=== PATIENT | male | born 1990 | race Two or more races ===

== ENCOUNTER 2019-12-18 11:44 | Emergency (ER) | payer MEDICAID ==
[~2019-12-18] VITALS: Ht 170.2 cm; Wt 90.7 kg
[~2019-12-18 11:44] MED LIST: AMOXICILLIN500 MG ORAL; IBUPROFEN600 MG ORAL
[2019-12-18 12:05] VITALS: BP 148/96
[2019-12-18] MEDS ORDERED: Lidocaine 1% Plain 30 ml INJ ONE (12:45)
[2019-12-18] MEDS ORDERED: CEPHALEXIN500 M1 ORAL (13:01)
[2019-12-18] MEDS ORDERED: BACTRIM DS TAB1 EAC1 ORAL (13:01)
--- NOTE | 2019-12-18 13:01 | Emergency Room Report ---
History of Present Illness General Chief Complaint: Skin Rash/Abscess Source: Patient Present Illness HPI 29-year-old male presents with pain to the left middle finger x3 days he endorses pus coming out of it, he states he poked it against a nail, no fevers no chills, patient states he is able to range his entire left middle finger he states there is only pain at the tip pain is described as sharp aggravated by touching it alleviated by leaving alone severity is moderate Allergies: Coded Allergies: NO KNOWN ALLERGIES (Unverified Allergy, Unknown, 04/14/15) COVID-19 Screening Contact w/high risk pt: No Experienced COVID-19 symptoms?: No COVID-19 Testing performed [employer]: No Patient History Past Medical History: see triage record Reviewed Nursing Documentation: PMH: Agreed; PSxH: Agreed Nursing Documentation-PMH Past Medical History: No Stated History Review of Systems All Other Systems: negative except mentioned in HPI Physical Exam Vital Signs Date Time Temp Pulse Resp B/P (MAP) Pulse Ox O2 Delivery O2 Flow Rate FiO2 12/18/19 11:52 99.0 96 15 150/94 (112) 99 Room Air General Appearance: well appearing, no apparent distress Head: normocephalic, atraumatic ENT: hearing grossly normal, normal voice Neck: full range of motion, supple Respiratory: no respiratory distress, speaking full sentences Musculoskeletal: other - Left upper extremity: 2+ radial pulse, cap refill less than 3 seconds, sensation grossly intact, left middle finger shows swelling erythema and drainage, at the tip, Neurologic: alert, normal gait Psychiatric: mood/affect normal Skin: no rash Procedures Incision and Drainage Incision and Drainage : Consent: Verbal Site: Left middle finger Blade Size: 11 I & D Procedure: betadine prep Wound Location: upper extremity - Left middle finger Wound's Depth, Shape: superficial Wound Length (cm): 1 Wound Explored: clean Irrigated w/ Saline (ccs): 10 Anesthesia: 1% Lidocaine Volume Anesthetic (ccs): 10 Patient Tolerated: Well Complications: None Progress Incision made on the ulnar aspect of the left middle finger Medical Decision Making Diagnostic Impression: Primary Impression: Felon of digit ER Course 29-year-old male presents with felon of the left middle finger, I&D at bedside, patient will be started on antibiotics strict return precautions are discussed no evidence of flexor tenosynovitis, patient is able to range his entire finger abx started follow-up with ortho Other X-Ray Diagnostic Results Other X-Ray Diagnostic Results : X-Ray ordered: Left hand # of Views/Limited Vs Complete: 3 View Indication: Pain EP Interpretation: Yes Interpretation: no dislocation, no fractures, other - Soft tissue swelling distal middle finger Impression: Other - Soft tissue swelling left distal middle finger Electronically Signed by: Jhoan Hawkins MD Last Vital Signs Date Time Temp Pulse Resp B/P (MAP) Pulse Ox O2 Delivery O2 Flow Rate FiO2 12/18/19 12:05 98.8 92 16 148/96 98 Room Air Disposition: HOME, SELF-CARE Condition: Stable Scripts Trimethoprim/Sulfamethoxazole 160/800* (BACTRIM DS TABLET*) 1 Each Tablet 1 TAB ORAL Q12H, #20 TAB 0 Refills Prov: Jhoan Hawkins MD 12/18/19 Cephalexin* (KEFLEX*) 500 Mg Tablet 500 MG ORAL EVERY 6 HOURS, #40 CAP Prov: Jhoan Hawkins MD 12/18/19 Referrals: [facility] Patient Instructions: Fingertip Infection Additional Instructions: The patient was provided with discharge instructions, notified to follow-up with a primary care doctor and or specialist in the next 24-48 hours, and to return to the ED if they have worsening of their symptoms. Please note that this report is being documented using [employer] technology. This can lead to erroneous entry secondary to incorrect interpretation by the dictating instrument. Jhoan Hawkins MD Dec 18, 2019 13:01
[2019-12-18 13:19] VITALS: BP 132/78
--- NOTE | 2019-12-18 14:09 | Diagnostic Imaging Report ---
Indication: Right hand pain Technique: 3 views right hand Comparison: none Findings: No acute fractures. No dislocations. The joint spaces are preserved. Impression: Negative
== END 2019-12-18 13:19 | disposition home or self-care (01) ==
LOC: EMR 12:58
DX: L03.012 Cellulitis of left finger (principal); W45.0XXA Nail entering through skin, initial encounter; Y92.9 Unspecified place or not applicable
CPT/HCPCS: 10060; 73130; J2001; Z7502; 99283